=== PATIENT | male | born 1990 | race Caucasian/White ===

== ENCOUNTER 2020-12-26 17:36 | Emergency (ER) | payer BC, SELFPAY ==
[2020-12-26 17:50] VITALS: BP 157/114; PULSE 76; RESP 16; TEMP 36.6; O2SAT 100
--- NOTE | 2020-12-26 18:13 | ED.GENADULT ---
HPI - General Adult General Chief complaint: Urogenital-Male Stated complaint: Passing a kidney stone Source: patient Mode of arrival: ambulatory Limitations: no limitations History of Present Illness HPI narrative: 30 y/o male. PMH includes: Autoimmune Peyronie's disease, Nephrolithiasis. Presents to [facility] today with acute complaints of passing a kidney stone'. Pt reports that due to his history of autoimmune urology issues, he is followed closely by Urology specialty MD Mireille Jeffery. He tells me that he is seen Q 6 months by this provider, and that he had a CT scan and follow-up just 4 weeks ago. Client states to have had a 2 cm, isolated, non-obstructing, right side renal stone that they told him was 'probably going to pass soon . No additional stone burden was identified. Patient reports to have felt himself passing the stone in the past 1 day. He reports symptoms of urinary frequency and pain. States to have called his Urologist today and left a message, but the clinic has not yet returned call. However, no fever. No abdominal pain, N/V. No urinary retention or distention. No gross hematuria. He is without additional acute complaints of illness upon exam. Related Data Home Medications Medication Instructions Recorded Confirmed allopurinol 12/26/20 duloxetine mg PO 12/26/20 methotrexate sodium 12/26/20 metoprolol succinate PO 12/26/20 tamsulosin mg PO 12/26/20 zolpidem 12/26/20 Allergies Allergy/AdvReac Type Severity Reaction Status Date / Time Sulfa (Sulfonamide Allergy Intermediate Rash Verified 09/27/18 17:21 Antibiotics) Review of Systems Review of Systems: Narrative: CONSTITUTIONAL: Denies fever, chills, sweats. EYES: Denies visual changes, redness, discharge. ENT: Denies rhinorrhea, congestion, sore throat, otalgia. CARDIOVASCULAR: Denies chest pain, palpitations, edema. RESPIRATORY: Denies dyspnea, wheezing, cough GASTROINTESTINAL: Denies abdominal pain, nausea, vomiting, diarrhea. GENITOURINARY: Dysuria & Frequency/Urgency. No gross hematuria, abnormal discharge SKIN: Denies rash or itching. MUSCULOSKELETAL: Denies acute back pain, joint pain, or myalgia. NEUROLOGIC: Denies numbness, or focal weakness. PSYCHIATRIC: Denies anxiety or depression. All systems reviewed & are unremarkable except as noted in HPI and below Exam Narrative: Exam Narrative: GENERAL: This is a well-nourished, well-developed patient, in no apparent distress. HEAD: normocephalic, atraumatic. EYES: PERRL. Sclera clear/white. Vision is grossly intact. EARS: External ears normal, auditory canals clear and without drainage, TMs normal without perforation. Hearing grossly intact. NOSE: External nose normal with no obvious nasal discharge, nares without redness, no rhinorrhea. THROAT: Mucous membranes moist, posterior pharynx clear. NECK: Neck supple, non-tender without lymphadenopathy, masses or thyromegaly. CARDIOVASCULAR: Regular rate and rhythm without murmurs, gallops, or rubs. RESPIRATORY: Clear to auscultation. Breath sounds equal bilaterally. No wheezes, rales, or rhonchi. GASTROINTESTINAL: Abdomen soft, non-tender, nondistended. Bowel sounds are active. No hepato-splenomegaly, or palpable masses. No guarding. No CVA tenderness appreciated. SKIN: warm, intact with no suspicious lesions or rash, good texture and turgor. NEURO: awake, alert, and oriented to person, place and time. There were no obvious focal neurologic abnormalities. Steady gait Course Course Emergency Course: -Physical exam is essentially benign. -Proceed with Urine Dipstick analysis. Vital Signs Vital signs: Vital Signs Temperature 36.6 C 12/26/20 17:50 Pulse Rate 76 12/26/20 17:50 Respiratory Rate 16 12/26/20 17:50 Blood Pressure 157/114 H 12/26/20 17:50 Pulse Oximetry 100 12/26/20 17:50 Temperature 36.6 C 12/26/20 17:50 Pulse Rate 76 12/26/20 17:50 Respiratory Rate 16 12/26/20 17:50 Blo
== END 2020-12-26 18:26 | disposition home or self-care (01) ==
PROVIDERS: Emergency Provider Nurse Practitioner Adult Health
DX: N20.0 Calculus of kidney (principal)
CPT/HCPCS: 81003; 99213; G0463